=== PATIENT | female | born 1975 | race Caucasian/White ===

== ENCOUNTER 2020-11-08 09:55 | Emergency (ER) | payer OTHER ==
[~2020-11-08 09:55] MED LIST: AZITHROMYCIN250 MG PO; CYMBALTA20 MG PO; FLOVENT HFA12 GM INH; LITHIUM300 MG PO; MEDROL 4MG DOSEP4 MG PO; NAPROSYN250 MG PO; NEURONTIN300 MG PO; PREDNISONE 20MG20 MG PO; PROPRANOLOL HCL10 MG PO; SINGULAIR10 MG PO; TOPAMAX100 MG PO; VENTOLIN HFA IN18 GM INH
[2020-11-08 11:17] LABS: BASOPHIL 0.4 % (0-2); EOSINOPHIL 1.4 % (0-5); HGB 14.7 g/dl (12.5-16.0); LYMPHOCYTE 8.9 % (15-48); MCH 29.2 pg (25.0-31.0); MCHC 32.7 g/dL (32.0-36.0); MCV 89.3 fL (78.0-100.0); MONOCYTE 4.4 % (0-12); MPV 9.8 fL (6.0-9.5); NEUTROPHIL 84.6 % (41-80); NRBC 0; PLT 314 K/uL (150-400); RBC 5.04 M/uL (4.20-5.40); RDW 13.2 % (11.5-14.0); WBC 12.5 K/uL (4.0-10.5)
[2020-11-08 11:37] LABS: ALBUMIN 3.7 g/dL (3.4-5.0); BILIRUBIN - TOTAL 0.2 mg/dL (0.2-1.0); CREATININE 1.11 mg/dL (0.51-0.95); GLOBULIN (CALCULATION) 4.2 g/dL; TOTAL PROTEIN 7.9 g/dL (6.4-8.2)
[2020-11-08 11:38] LABS: BILIRUBIN NEGATIVE (NEGATIVE); BLOOD 1+ Ery/uL (NEGATIVE); COLOR YELLOW (YELLOW); GLUCOSE (U) NORMAL (NORMAL); LEUKOCYTES 2+ Leu/uL (NEGATIVE); NITRITE NEGATIVE (NEGATIVE); PROTEIN NEGATIVE (NEGATIVE); UROBILINOGEN 0.2 mg/dL (0.2-1.0)
[2020-11-08 11:46] LABS: CLARITY HAZY (CLEAR)
[2020-11-08 11:50] LABS: BACTERIA 1+
[2020-11-08] MEDS ORDERED: CIPRO500 MG PO (13:54)
[2020-11-08] MEDS ORDERED: PHENERGAN25 M1 PO (13:54)
== END 2020-11-08 15:06 | disposition home or self-care (01) ==
LOC: FER 09:55
PROVIDERS: Internal Medicine
DX: N12 Tubulo-interstitial nephritis, not specified as acute or chronic (principal); F31.9 Bipolar disorder, unspecified; F41.9 Anxiety disorder, unspecified; Z20.822 Contact with and (suspected) exposure to COVID-19; Z88.0 Allergy status to penicillin
CPT/HCPCS: 36415; 80053; 81001; 82150; 83690; 85025; 96372; J0696; J2405; J2550; J7030; U0002

== ENCOUNTER 2020-11-30 02:54 | Emergency (ER) | payer OTHER ==
[~2020-11-30 02:54] MED LIST changes: +CIPRO500 MG PO; +PHENERGAN25 M1 PO
[2020-11-30 04:14] LABS: BASOPHIL 0.6 % (0-2); EOSINOPHIL 6.1 % (0-5); HCT 47.3 % (37.0-47.0); HGB 15.2 g/dl (12.5-16.0); LYMPHOCYTE 20.3 % (15-48); MCH 28.8 pg (25.0-31.0); MCHC 32.1 g/dL (32.0-36.0); MCV 89.8 fL (78.0-100.0); MONOCYTE 6.3 % (0-12); MPV 10.1 fL (6.0-9.5); NEUTROPHIL 66.4 % (41-80); NRBC 0; PLT 375 K/uL (150-400); RBC 5.27 M/uL (4.20-5.40); RDW 12.8 % (11.5-14.0); WBC 11.5 K/uL (4.0-10.5)
[2020-11-30 04:32] LABS: BILIRUBIN - TOTAL 0.3 mg/dL (0.2-1.0); BUN/CREAT RATIO (CALC) 7.5 RATIO; CREATININE 1.2 mg/dL (0.51-0.95); GLOBULIN (CALCULATION) 4.1 g/dL; POTASSIUM 3.3 mmol/L (3.5-5.1); TOTAL PROTEIN 8.1 g/dL (6.4-8.2)
[2020-11-30] MEDS ORDERED: PHENERGAN25 M1 PO (07:29)
[2020-11-30] MEDS ORDERED: XANAX0.25 M1 PO (07:29)
[2020-11-30] MEDS ORDERED: PERCOCET 5-3251 EACH PO (07:29)
== END 2020-11-30 07:50 | disposition home or self-care (01) ==
LOC: FER 02:54
PROVIDERS: Emergency Medicine Emergency Medical Services
DX: R10.11 Right upper quadrant pain (principal); R11.2 Nausea with vomiting, unspecified; E87.6 Hypokalemia; J45.909 Unspecified asthma, uncomplicated; Z88.0 Allergy status to penicillin
CPT/HCPCS: 36415; 80053; 82150; 83690; 84703; 85025; 87339; J1170; J1885; J2060; J2405; J2550; J7030; Q9967

== ENCOUNTER 2021-10-15 08:45 | Inpatient (IN) | payer OTHER ==
[~2021-10-15] VITALS: Ht 172.7 cm; Wt 94.4 kg
[~2021-10-15 08:45] MED LIST changes: +PERCOCET 5-3251 EACH PO; +XANAX0.25 M1 PO
[2021-10-15 09:57] LABS: BASOPHIL 0.3 % (0-2); EOSINOPHIL 0 % (0-5); HCT 42.7 % (37.0-47.0); HGB 13.9 g/dl (12.5-16.0); LYMPHOCYTE 6.5 % (15-48); MCHC 32.6 g/dL (32.0-36.0); MCV 92.2 fL (78.0-100.0); MONOCYTE 4.4 % (0-12); MPV 9.5 fL (6.0-9.5); NEUTROPHIL 83.8 % (41-80); NRBC 0; PLT 336 K/uL (150-400); RBC 4.63 M/uL (4.20-5.40); RDW 13.4 % (11.5-14.0); WBC 20.4 K/uL (4.0-10.5)
[2021-10-15 10:03] LABS: INR 0.93 (0.9-1.2); PROTHROMBIN TIME 12.2 SECONDS (11.9-13.9); PTT 21.4 SECONDS (24.9-34.6)
[2021-10-15 10:19] LABS: ALBUMIN 3.6 g/dL (3.4-5.0); BILIRUBIN - TOTAL 0.2 mg/dL (0.2-1.0); BUN/CREAT RATIO (CALC) 18.3 RATIO; CREATININE 0.93 mg/dL (0.51-0.95); GLOBULIN (CALCULATION) 3.7 g/dL; POTASSIUM 4.5 mmol/L (3.5-5.1); TOTAL PROTEIN 7.3 g/dL (6.4-8.2)
[2021-10-15 11:13] LABS: LYMPHOCYTE(M) 7 % (15-48); MONOCYTE(M) 5 % (0-12); NEUTROPHILS(M) 88 % (41-80); PLATELET ESTIMATE NORMAL
[2021-10-15 11:14] LABS: PLATELET MORPHOLOGY NORMAL
[2021-10-15] MEDS ORDERED: PROZAC20 MG PO (18:00)
[2021-10-15] MEDS ORDERED: LITHIUM CARBON450 MG PO (18:03)
[2021-10-15] MEDS ORDERED: DEXAMETHASONE 2M2 MG PO (18:11)
[2021-10-15] MEDS ORDERED: PREDNISONE 20MG20 MG PO (18:11)
[2021-10-15] MEDS ORDERED: VENTOLIN (2.5 MG/3 M INH (18:12)
[2021-10-16 06:20] LABS: BASOPHIL 0.4 % (0-2); EOSINOPHIL 0 % (0-5); HCT 43.1 % (37.0-47.0); LYMPHOCYTE 5.4 % (15-48); MCH 30.5 pg (25.0-31.0); MCHC 32.5 g/dL (32.0-36.0); MCV 93.9 fL (78.0-100.0); MPV 9.8 fL (6.0-9.5); NEUTROPHIL 85.6 % (41-80); NRBC 0; PLT 359 K/uL (150-400); RBC 4.59 M/uL (4.20-5.40); RDW 13.8 % (11.5-14.0)
[2021-10-16 06:39] LABS: WBC 28.6 K/uL (4.0-10.5)
[2021-10-16 07:15] LABS: BUN/CREAT RATIO (CALC) 25.5 RATIO; CREATININE 0.94 mg/dL (0.51-0.95); MAGNESIUM 2.6 mg/dL (1.8-2.4); POTASSIUM 4.6 mmol/L (3.5-5.1)
[2021-10-17 06:17] LABS: BASOPHIL 0.4 % (0-2); EOSINOPHIL 0.1 % (0-5); HCT 44.1 % (37.0-47.0); LYMPHOCYTE 5.8 % (15-48); MCHC 31.7 g/dL (32.0-36.0); MCV 94.6 fL (78.0-100.0); MONOCYTE 1.7 % (0-12); MPV 9.6 fL (6.0-9.5); NRBC 0; PLT 295 K/uL (150-400); RBC 4.66 M/uL (4.20-5.40); RDW 13.9 % (11.5-14.0); WBC 19.5 K/uL (4.0-10.5)
[2021-10-17 06:42] LABS: BUN/CREAT RATIO (CALC) 25.3 RATIO; CREATININE 0.95 mg/dL (0.51-0.95); MAGNESIUM 2.5 mg/dL (1.8-2.4)
[2021-10-17] MEDS ORDERED: CLARITIN10 MG PO (18:12)
[2021-10-17] MEDS ORDERED: HYDROCODONE-CH473 ML PO (18:12)
[2021-10-17] MEDS ORDERED: MEDROL 4MG DOSEP4 MG PO (18:12)
[2021-10-17] MEDS ORDERED: SINGULAIR10 MG PO (18:12)
== END 2021-10-17 21:57 | disposition home or self-care (01) | DRG 872 ==
LOC: FER 08:45 → FTCU 12:18
PROVIDERS: Emergency Medicine; ADMIT Internal Medicine
DX: A41.9 Sepsis, unspecified organism (principal); J45.902 Unspecified asthma with status asthmaticus; E87.2 Acidosis; R65.20 Severe sepsis without septic shock; Z20.822 Contact with and (suspected) exposure to COVID-19; F31.9 Bipolar disorder, unspecified; Z88.0 Allergy status to penicillin; Z82.49 Family history of ischemic heart disease and other diseases of the circulatory system; Z82.5 Family history of asthma and other chronic lower respiratory diseases; Z79.899 Other long term (current) drug therapy; Z28.311 Partially vaccinated for COVID-19; Z90.49 Acquired absence of other specified parts of digestive tract
CPT/HCPCS: 36415; 71045; 71275; 80048; 80053; 83605; 83735; 84145; 84484; 85025; 85610; 85730; 93005; 94010; 94640; J0456; J1650; J1885; J2920; J2930; J3475; J7050; J7120; Q9967; U0002